=== PATIENT | female | born 1990 | race Caucasian/White ===

== ENCOUNTER 2020-06-20 13:10 | Observation (INO) | payer MEDICAID, SELFPAY ==
[~2020-06-20] VITALS: Ht 152.4 cm; Wt 78.9 kg
[2020-06-20 13:40] VITALS: BP 115/63
[2020-06-20] MEDS ORDERED: PNV91TAB10 PO (14:05)
== END 2020-06-20 14:40 | disposition home or self-care (01) ==
LOC: MFCC 13:10
PROVIDERS: ADMIT Obstetrics & Gynecology; ATTEND Obstetrics & Gynecology
DX: O26.893 Other specified pregnancy related conditions, third trimester (principal); Z20.828 Contact with and (suspected) exposure to other viral communicable diseases; R10.9 Unspecified abdominal pain; Z3A.37 37 weeks gestation of pregnancy
CPT/HCPCS: 59025; 81000; 87426; G0378

== ENCOUNTER 2020-06-21 10:30 | Inpatient (IN) | payer MEDICAID ==
[~2020-06-21] VITALS: Ht 160 cm; Wt 77.6 kg
[~2020-06-21 10:30] MED LIST: PNV91TAB10 PO
[2020-06-21] MEDS ORDERED: LACTATED RINGERS 1,000 ML IV SCH (10:48)
[2020-06-21] MEDS ORDERED: METHYLERGONOVINE 0.2 MG/ML AMP IM PRN ×2 (10:50→19:40)
[2020-06-21] MEDS ORDERED: OXYTOCIN 20 UNITS in LACTATED RINGERS 1,000 ML IV SCH (10:50)
[2020-06-21] MEDS ORDERED: CARBOPROST 250 MCG/ML AMP IM PRN (10:50)
[2020-06-21 11:27] LABS: BASOPHILS # (AUTO) 0.1 K/uL (0.00-0.22); BASOPHILS % (AUTO) 0.6 % (0.0-2.0); EOSINOPHILS % (AUTO) 0.1 % (0.0-4.0); HEMATOCRIT 36.8 % (36-48); LYMPHOCYTES # (AUTO) 1.2 K/uL (2.5-16.5); LYMPHOCYTES % (AUTO) 8.2 % (20.5-51.1); MEAN CORPUSCULAR HEMOGLOBIN 31 pg (27-31); MEAN CORPUSCULAR HGB CONC 33 g/dL (33-37); MEAN CORPUSCULAR VOLUME 93.6 fL (80-94); MONOCYTES # (AUTO) 1.3 K/uL (0.8-1.0); MONOCYTES % (AUTO) 8.8 % (1.7-9.3); NEUTROPHILS # (AUTO) 12.5 K/uL (1.8-7.7); NEUTROPHILS % (AUTO) 82.3 % (42.2-75.2); PLATELET COUNT (AUTO) 282 K/uL (140-450); RED BLOOD CELL COUNT(AUTO) 3.93 MIL/uL (4.20-5.40); RED CELL DISTRIBUTION WIDTH 14.6 % (11.6-13.7); WHITE BLOOD COUNT (AUTO) 15.2 K/uL (4.8-10.8)
[2020-06-21] MEDS ORDERED: PROMETHAZINE 25 MG/ML VIAL IM PRN (11:30)
[2020-06-21] MEDS ORDERED: MORPHINE SULFATE 5 MG/ML VIAL IVP PRN (11:30)
[2020-06-21] MEDS ORDERED: OXYTOCIN 20 UNITS/LR PREMIX 1,000 ML IV ONE (11:33)
[2020-06-21 11:50] VITALS: BP 117/59
[2020-06-21] MEDS ORDERED: MORPHINE SULFATE 10 MG/ML VIAL ONE (11:51)
[2020-06-21 11:54] VITALS: BP 117/59
[2020-06-21 12:06] LABS: ALBUMIN 2.8 g/dL (3.4-5.0); ANION GAP 17.9 (8-16); CARBON DIOXIDE 20.9 mmol/L (21-32); CREATININE 0.5 mg/dL (0.6-1.3); POTASSIUM 3.8 mmol/L (3.5-5.1); TOTAL BILIRUBIN 0.2 mg/dL (0.0-1.0)
[2020-06-21 12:17] LABS: APPEARANCE,URINE CLEAR (CLEAR); BILIRUBIN,URINE NEGATIVE (NEGATIVE); BLOOD, URINE 3+ (NEGATIVE); COLOR,URINE YELLOW (YELLOW); LEUKOCYTE ESTERASE ,URINE TRACE (NEGATIVE); NITRITE, URINE NEGATIVE (NEGATIVE); UGLUCOSE NEGATIVE (NEGATIVE)
[2020-06-21 13:04] LABS: WBC,URINE 0-5 /HPF (0-5)
[2020-06-21] MEDS ORDERED: BENZOCAINE/MENTHOL 20%-0.5% 60 GM CAN TP PRN (19:40)
[2020-06-21] MEDS ORDERED: MEASLES, MUMPS, AND RUBELLA 1 VIAL SQVAC PRN (19:40)
[2020-06-21] MEDS ORDERED: HYDROcodone/APAP 5/325 MG 1 TAB TAB PO PRN (19:40)
[2020-06-21] MEDS ORDERED: IBUPROFEN 800 MG TAB PO PRN (19:40)
[2020-06-21] MEDS ORDERED: OXYTOCIN 10 UNITS/ML VIAL IM PRN (19:40)
[2020-06-21] MEDS ORDERED: TEMAZEPAM 15 MG CAP PO PRN (19:40)
[2020-06-21] MEDS ORDERED: oxyCODONE/APAP 5/325 MG 1 TAB TAB PO PRN (19:40)
[2020-06-22 06:06] LABS: HEMATOCRIT 33.9 % (36-48)
[2020-06-22] MEDS ORDERED: DOCUSATE SOD/SENNA 50/8.6 MG 1 TAB PO SCH (21:00)
== END 2020-06-22 21:50 | disposition home or self-care (01) | DRG 560 ==
LOC: MFCC 10:30
PROVIDERS: ADMIT Obstetrics & Gynecology; ATTEND Obstetrics & Gynecology
PROC: 10D07Z6 Extraction of Products of Conception, Vacuum, Via Natural or Artificial Opening (ICD-10-PCS; principal; 2020-06-22)
PROC: 3E0234Z Introduction of Serum, Toxoid and Vaccine into Muscle, Percutaneous Approach (ICD-10-PCS; 2020-06-22)
PROC: 3E0234Z Introduction of Serum, Toxoid and Vaccine into Muscle, Percutaneous Approach (ICD-10-PCS; 2020-06-22)
DX: O60.23X0 Term delivery with preterm labor, third trimester, not applicable or unspecified (principal); O26.893 Other specified pregnancy related conditions, third trimester; O66.5 Attempted application of vacuum extractor and forceps; Z37.0 Single live birth; Z23 Encounter for immunization; Z67.91 Unspecified blood type, Rh negative; Z3A.38 38 weeks gestation of pregnancy
CPT/HCPCS: 36415; 80053; 81001; 85018; 85025; 86592; 86850; 86886; 86900; 86901; 90715; J2270; J2550; J2590; J2790; J7120